=== PATIENT | female | born 1935 | race Caucasian/White ===

== ENCOUNTER 2017-06-13 13:00 | Outpatient (CLI) | payer OTHER ==
[~2017-06-13 13:00] MED LIST: ANTIVERT25 MG; DETROL2 MG; FLUCONAZOLE100 MG PO; GLIBURIDE; LYRICA100 MG; Lantus 1000 U/10 ML SUBCUTANEO; METFORMIN HCL500 MG; Neurontin PO; PLAVIX 75MG PO; Tenormin 50MG TAB PO
== END 2017-06-13 13:05 | disposition home or self-care (01) ==
LOC: SONOGRAMA 13:00
DX: M75.101 Unspecified rotator cuff tear or rupture of right shoulder, not specified as traumatic (principal)

== ENCOUNTER 2019-09-03 09:58 | Outpatient (CLI) | payer OTHER | END 2019-09-03 10:06 | disposition home or self-care (01) | LOC: NUCLEAR 09:58 | PROVIDERS: ATTEND Surgery | DX: I83.218 Varicose veins of right lower extremity with both ulcer of other part of lower extremity and inflammation (principal); I83.228 Varicose veins of left lower extremity with both ulcer of other part of lower extremity and inflammation; L97.818 Non-pressure chronic ulcer of other part of right lower leg with other specified severity; L97.828 Non-pressure chronic ulcer of other part of left lower leg with other specified severity ==

== ENCOUNTER → 2019-12-19 13:38 | Outpatient (CLI) | payer OTHER | END | disposition home or self-care (01) | LOC: LAB 13:38 | PROVIDERS: ATTEND Surgery | DX: L97.929 Non-pressure chronic ulcer of unspecified part of left lower leg with unspecified severity (principal) ==

== ENCOUNTER 2020-11-05 12:05 | Outpatient (CLI) | payer OTHER | END 2020-11-05 12:11 | disposition home or self-care (01) | LOC: RAD 12:05 | PROVIDERS: ATTEND Internal Medicine | DX: M25.562 Pain in left knee (principal) ==